=== PATIENT | male | born 1995 | race Caucasian/White ===

== ENCOUNTER → 2021-02-15 | Day surgery (SDC) | payer OTHER ==
[~2021-02-15] MED LIST: ACCU-CHEK COMB1 EACH; HYDROCODON-ACE1 EAC7 PO
--- NOTE | ~2021-02-15 | OP ---
[facility] [address] [place] [address] OPERATIVE REPORT Name: JOHN BUSTILLOS Room: [facility] M.R.#: [id number] Admission: 02/15/21 Attend Phys: Jaswant Funez Discharge: Date of : 89 Report #: [id number] THIS REPORT FOR: cc: FAM - No family physician/PCP FAM - No family physician/PCP Jaswant Funez MD ~ DATE OF SURGERY: 02/15/2021 PREOPERATIVE DIAGNOSIS: Pilonidal cyst. POSTOPERATIVE DIAGNOSIS: Pilonidal cyst. OPERATION: Pilonidal cystectomy. SURGEON: Jaswant Funez MD ANESTHESIA: General. ESTIMATED BLOOD LOSS: Minimal. SPECIMENS: Pilonidal cyst. DESCRIPTION OF PROCEDURE: After informed consent was obtained, the patient was brought to the operating room and placed supine. SCDs were placed and working, preoperative antibiotics were administered, general anesthesia was induced. The patient was then placed in the prone position. The area was then prepped and draped in the usual sterile fashion. A 2 cm elliptical incision was made around the pilonidal cyst. Cautery dissection was made down through the skin and down to the healthy subcutaneous fat. I then dissected all the way down to the fascia. The cyst was excised. The skin was then closed with a 2-0 Monocryl suture in interrupted fashion. It was packed with Aquacel Ag and sterile dressings were applied. COMPLICATIONS: None. DISPOSITION: The patient was taken to recovery in satisfactory condition. By: [id number] Funez MD /nt
[2021-02-15 07:06] LABS: CALCIUM 8.9 mg/dL (8.5-10.1); CREATININE 0.9 mg/dL (0.6-1.3); POTASSIUM 3.8 mmol/L (3.5-5.1)
== END | disposition home or self-care (01) ==
LOC: M.SUR 06:02
PROVIDERS: Anesthesiology; ATTEND Surgery
DX: L05.91 Pilonidal cyst without abscess (principal); E11.9 Type 2 diabetes mellitus without complications; Z79.4 Long term (current) use of insulin; Z98.890 Other specified postprocedural states